=== PATIENT | female | born 1945 | race Caucasian/White ===

== ENCOUNTER 2017-06-16 14:12 | Outpatient (CLI) | payer MEDICARE, OTHER ==
[2017-06-16] MEDS ORDERED: POLY17PO10 PO (15:17)
[2017-06-16] MEDS ORDERED: NITR0.4T SL (15:17)
[2017-06-16] MEDS ORDERED: HYDR-565 PO (15:17)
[2017-06-16 15:52] LABS: BASOPHILS % (AUTO) 0.9 % (0-1); EOSINOPHILS # (AUTO) 0.1 X10'3 (0-0.9); EOSINOPHILS % (AUTO) 2.7 % (0-6); LYMPHOCYTES # (AUTO) 1.6 X10'3 (1.1-4.8); LYMPHOCYTES % (AUTO) 32.6 % (21-51); MEAN CORPUSCULAR HEMOGLOBIN 32.9 PG (27.0-31.0); MEAN CORPUSCULAR HGB CONC 33.7 % (33.0-36.5); MEAN CORPUSCULAR VOLUME 97.7 FL (78-98); MONOCYTES # (AUTO) 0.4 X10'3 (0-0.9); MONOCYTES % (AUTO) 8.6 % (2-12); NEUTROPHILS % (AUTO) 55.2 % (42-75); PRE OP HEMATOCRIT 31.6 % (35.0-45.0); PRE OP PLATELET COUNT 379 X10'3 (140-440); RED BLOOD COUNT 3.23 X10'6 (4.20-5.60); RED CELL DISTRIBUTION WIDTH 13.3 % (11.5-14.5)
[2017-06-16 15:54] LABS: PRE OP HEMOGLOBIN 10.6 g/dL (12.0-16.0)
[2017-06-16 16:02] LABS: ALBUMIN 3.4 G/DL (3.4-5.0); ALBUMIN/GLOBULIN RATIO 0.9 (1.1-1.5); ALKALINE PHOSPHATASE 104 IU/L (46-116); BLOOD UREA NITROGEN 10 MG/DL (7-18); BUN/CREATININE RATIO 12.7 (6.6-38.0); CALCIUM 8.4 MG/DL (8.5-10.1); CHLORIDE 107 MMOL/L (99-107); CREATININE 0.79 MG/DL (0.40-0.90); PRE OP ALT 29 U/L (30-65); PRE OP ANION GAP 8 (8-16); PRE OP AST 26 U/L (10-37); PRE OP BILIRUB, TOTAL 0.3 MG/DL (0.0-1.0); PRE OP GLUCOSE 83 MG/DL (70-104); PRE OP POTASSIUM 3.8 MMOL/L (3.4-5.1); PRE OP SODIUM 143 MMOL/L (135-145); TOTAL CARBON DIOXIDE 28.2 MMOL/L (24-32); eGFR 72 ML/MIN
== END 2017-06-16 23:59 | disposition home or self-care (01) ==
LOC: PRE-OP 14:12 → EDSTATUS 14:30 → PRE-OP 23:59 → EDSTATUS 06-21 15:45
PROVIDERS: ATTEND Orthopaedic Surgery
DX: Z01.818 Encounter for other preprocedural examination (principal); M17.12 Unilateral primary osteoarthritis, left knee; Z96.652 Presence of left artificial knee joint
CPT/HCPCS: 36415; 71046; 80053; 85025; 85610; 85730; 86885; 86900; 86901; 86920; 87070; 93005

== ENCOUNTER 2018-06-20 05:16 | Inpatient (IN) | payer MEDICARE, OTHER | END 2018-06-23 12:55 | disposition home or self-care (01) | LOC: PAS IN 05:16 → ORTHO 4S 12:15 | PROC: 0SRD0J9 Replacement of Left Knee Joint with Synthetic Substitute, Cemented, Open Approach (ICD-10-PCS; principal; 2018-06-20 07:21) | DX: M17.12 Unilateral primary osteoarthritis, left knee (principal); D62 Acute posthemorrhagic anemia ==

== ENCOUNTER 2023-09-07 05:49 | Day surgery (SDC) | payer MEDICARE, OTHER ==
[2023-09-01 14:11] LABS: BASOPHILS # (AUTO) 0.1 X10'3 (0-0.2); BASOPHILS % (AUTO) 1.3 % (0-1); EOSINOPHILS # (AUTO) 0.2 X10'3 (0-0.9); EOSINOPHILS % (AUTO) 3.7 % (0-6); LYMPHOCYTES # (AUTO) 1.4 X10'3 (1.1-4.8); LYMPHOCYTES % (AUTO) 28.3 % (21-51); MEAN CORPUSCULAR HGB CONC 32.5 g/dL (33.0-36.5); MEAN CORPUSCULAR VOLUME 95.4 FL (78-98); MEAN PLATELET VOLUME 8.6 FL (7.4-10.4); MONOCYTES # (AUTO) 0.5 X10'3 (0-0.9); MONOCYTES % (AUTO) 9.4 % (2-12); NEUTROPHILS # (AUTO) 2.9 X10'3 (1.8-7.7); NEUTROPHILS % (AUTO) 57.3 % (42-75); PRE OP HEMATOCRIT 40.4 % (35.0-45.0); PRE OP HEMOGLOBIN 13.1 g/dL (12.0-16.0); PRE OP PLATELET COUNT 276 X10'3 (140-440); PRE OP WHITE BLOOD COUNT 5.1 10'3 (4.8-10.8); RED BLOOD COUNT 4.23 X10'6 (4.20-5.60); RED CELL DISTRIBUTION WIDTH 14.6 % (11.5-14.5)
[2023-09-01 14:30] LABS: BILIRUBIN,URINE NEGATIVE (Neg); CLARITY,URINE CLEAR (Clear); COLOR,URINE YELLOW (Yellow); GLUCOSE, URINE NEGATIVE (Neg); KETONES,URINE NEGATIVE (Neg); LEUKOCYTE ESTERASE ,URINE NEGATIVE (Neg); NITRITES, URINE NEGATIVE (Neg); OCCULT BLOOD,URINE NEGATIVE (Neg); PH,URINE 6.5 (4.8-8.0); PROTEIN,URINE NEGATIVE (Neg); UA COLLECTION TYPE CLN CATCH MIDSTREAM; UROBILINOGEN,URINE 0.2 E.U/dL (0.2-1.0)
[2023-09-01 14:32] LABS: PRE OP PROTIME 10.3 SECONDS (9.0-12.0)
[2023-09-01 14:49] LABS: ALBUMIN 3.7 G/DL (3.4-5.0); ALKALINE PHOSPHATASE 120 IU/L (46-116); BLOOD UREA NITROGEN 12 MG/DL (7-18); BUN/CREATININE RATIO 16.2 (10.0-20.0); CHLORIDE 106 MMOL/L (99-107); CREATININE 0.74 MG/DL (0.40-0.90); PRE OP ALT 76 U/L (30-65); PRE OP ANION GAP 9 (8-16); PRE OP AST 55 U/L (10-37); PRE OP BILIRUB, TOTAL 0.5 MG/DL (0.0-1.0); PRE OP GLUCOSE 97 MG/DL (70-104); PRE OP SODIUM 140 MMOL/L (135-145); TOTAL CARBON DIOXIDE 24.7 MMOL/L (24-32); TOTAL PROTEIN 7.5 G/DL (6.4-8.2); eGFR 76 ML/MIN
[2023-09-07] VITALS (29 sets, daily range): BP systolic 87–146; BP diastolic 40–88; PULSE 60–99; RESP 13–22; TEMP 97.5–98.2; O2SAT 89–98
[~2023-09-07] VITALS: Ht 152.4 cm; Wt 61.4 kg
[2023-09-07] MEDS: cefazolin 2gm/D5W 100mL 100 ML IV ONE (05:30)
[~2023-09-07 05:49] MED LIST: ASPI1TAB9 PO; ESZO3TAB66 PO
[2023-09-07] MEDS ORDERED: acetaminophen 325mg tablet PO PRN (06:50)
[2023-09-07] MEDS ORDERED: diphenhydrAMINE 25mg capsule PO PRN (06:50)
[2023-09-07] MEDS ORDERED: bisacodyl 10mg suppository rectal RC PRN (06:50)
[2023-09-07] MEDS ORDERED: ondansetron/PF 4mg/2ml inj IV PRN ×2 (06:50→09:30)
[2023-09-07] MEDS ORDERED: magnesium hydroxide 30ml (MOM) UD suspension PO PRN (06:50)
[2023-09-07] MEDS ORDERED: naloxone 0.4 mg/ml inj IV PRN (06:50)
[2023-09-07] MEDS: ringers solution, lacted 1,000 ML IV SCH (06:51)
[2023-09-07] MEDS: famotidine 20mg tablet PO ONE (06:51)
[2023-09-07] MEDS ORDERED: cefazolin 2gm/D5W 100mL 100 ML IV SCH (08:00)
[2023-09-07] MEDS ORDERED: fentaNYL/PF 50MCG/1 ML 2ML syringe ONE (08:10)
[2023-09-07] MEDS ORDERED: sevoflurane 250ml liquid IH ONE (08:11)
[2023-09-07] MEDS ORDERED: midazolam 1 mg/ML 2ml injection ONE (08:11)
[2023-09-07] MEDS ORDERED: propofol inj 20 ML IV ONE (08:21)
[2023-09-07] MEDS ORDERED: rocuronium 10mg/ml inj IV ONE (08:21)
[2023-09-07] MEDS ORDERED: LIDOcaine 1%/PF 5ML 10 MG/ML VIAL ONE (08:21)
[2023-09-07] MEDS ORDERED: dexamethasone sod phosphate 4mg/ml inj. ONE (08:49)
[2023-09-07] MEDS ORDERED: vancomycin 1,000mg inj ONE (08:49)
[2023-09-07] MEDS: vancomycin 1,000mg inj IVT ONE (09:07)
[2023-09-07] MEDS ORDERED: ROPIVAcaine 0.5% (5mg/ml) 30ml vial ONE (09:20)
[2023-09-07] MEDS ORDERED: morphine 2 MG/ML inj. syringe IV PRN (09:30)
[2023-09-07] MEDS ORDERED: meperidine/PF 25mg/ml syringe IV PRN ×3 (09:30)
[2023-09-07] MEDS ORDERED: proCHLORperazine 10 MG/2 ml inj IV PRN (09:30)
[2023-09-07] MEDS ORDERED: morphine 4 MG/ML inj SYRINge IV PRN (09:30)
[2023-09-07] MEDS ORDERED: enalaprilat dihydrate 2.5mg/2ml vial IV PRN (09:30)
[2023-09-07] MEDS ORDERED: labetalol 20mg/4ml (5mg/ml) syringe IV PRN (09:30)
[2023-09-07] MEDS ORDERED: ringers solution, lacted 1,000 ML IV SCH (09:30)
[2023-09-07] MEDS ORDERED: ondansetron/PF 4mg/2ml inj ONE (10:21)
[2023-09-07] MEDS ORDERED: ASPI-128 PO (11:40)
[2023-09-07] MEDS: potassium cl 20mEq in 1/2 NS 1,000 ML IV SCH (14:35)
[2023-09-07] MEDS: oxyCODONE IR 5mg (immed. release) tablet PO PRN (16:37)
[2023-09-07] MEDS: cefazolin 2gm/D5W 100mL 100 ML IV SCH (16:55)
[2023-09-07] MEDS: zolpidem 5mg tablet PO SCH (20:54)
[2023-09-08] MEDS: methylene blue (5mg/ml) 50mg/10ml ampul IV ONE (00:58)
[2023-09-08] MEDS: tranexamic acid inj. 1,000 MG in normal saline IV soln 100ML IV ONE (00:58)
[2023-09-08] MEDS: gelatin sponge, absorbable (Gelfoam 100) sponge TP ONE (00:59)
[2023-09-08] MEDS: vancomycin 1,000mg inj ONE (00:59)
[2023-09-08] MEDS: Thrombin (Bovine) 5,000 unit vial TP ONE (01:00)
[2023-09-08] MEDS: cloNIDine hcl/PF 100mcg/ml inj ONE (01:00)
[2023-09-08 02:00] VITALS: BP 113/64; PULSE 96; RESP 15; TEMP 97.3; O2SAT 95
[2023-09-08 06:00] VITALS: BP 121/64; PULSE 96; RESP 16; TEMP 97.4; O2SAT 92
[2023-09-08 06:45] LABS: BASOPHILS % (AUTO) 0 % (0-1); EOSINOPHILS % (AUTO) 0 % (0-6); HEMATOCRIT 33.1 % (35.0-45.0); LYMPHOCYTES % (AUTO) 9.9 % (21-51); MEAN CORPUSCULAR HEMOGLOBIN 31.5 PG (27.0-31.0); MEAN CORPUSCULAR HGB CONC 33.2 g/dL (33.0-36.5); MEAN PLATELET VOLUME 8.4 FL (7.4-10.4); MONOCYTES # (AUTO) 0.7 X10'3 (0-0.9); MONOCYTES % (AUTO) 6.8 % (2-12); NEUTROPHILS # (AUTO) 8.5 X10'3 (1.8-7.7); NEUTROPHILS % (AUTO) 83.3 % (42-75); PLATELET COUNT 227 X10'3 (140-440); RED BLOOD COUNT 3.49 X10'6 (4.20-5.60); RED CELL DISTRIBUTION WIDTH 14.9 % (11.5-14.5); WHITE BLOOD COUNT 10.2 X10'3 (4.5-11.0)
[2023-09-08 06:46] LABS: ALANINE AMINOTRANSFERASE 54 U/L (12-78); ALBUMIN 2.8 G/DL (3.4-5.0); ALBUMIN/GLOBULIN RATIO 0.8 (1.1-1.5); ALKALINE PHOSPHATASE 114 IU/L (46-116); ANION GAP 9 (8-16); ASPARTATE AMINO TRANSFERASE 42 U/L (10-37); BILIRUBIN,TOTAL 0.4 MG/DL (0.1-1.0); BLOOD UREA NITROGEN 11 MG/DL (7-18); BUN/CREATININE RATIO 12.5 (10.0-20.0); CALCIUM 8.5 MG/DL (8.5-10.1); CHLORIDE 105 MMOL/L (99-107); CREATININE 0.88 MG/DL (0.40-0.90); GLUCOSE 155 MG/DL (70-104); POTASSIUM 4.2 MMOL/L (3.5-5.1); SODIUM 138 MMOL/L (135-145); TOTAL PROTEIN 6.3 G/DL (6.4-8.2); eCRCL 38 ML/MIN; eGFR 62 ML/MIN
[2023-09-08] MEDS: TYPE IN GENERIC & BRAND NAME OF PATIENT MED STRENGTH & FORM PO SCH (07:40)
[2023-09-08] MEDS: aspirin 325mg tablet PO SCH (07:46)
[2023-09-08] MEDS: oxyCODONE IR 5mg (immed. release) tablet PO PRN (07:46)
[2023-09-08 10:00] VITALS: BP 108/57; PULSE 95; RESP 16; TEMP 97.7; O2SAT 98
== END 2023-09-08 13:42 | disposition home or self-care (01) ==
LOC: PAS 05:49 → ORTHO 4S 07:04 → PAS 09-08 13:42
PROVIDERS: ATTEND Specialist
DX: M75.101 Unspecified rotator cuff tear or rupture of right shoulder, not specified as traumatic (principal); G89.18 Other acute postprocedural pain; E78.00 Pure hypercholesterolemia, unspecified; J43.9 Emphysema, unspecified; G62.9 Polyneuropathy, unspecified; Z87.891 Personal history of nicotine dependence; Z79.891 Long term (current) use of opiate analgesic; Z79.899 Other long term (current) drug therapy; Z90.49 Acquired absence of other specified parts of digestive tract; Z90.710 Acquired absence of both cervix and uterus; Z96.652 Presence of left artificial knee joint; Z88.8 Allergy status to other drugs, medicaments and biological substances
CPT/HCPCS: 23430; 23472; 36415; 64415; 71045; 73030; 80053; 81003; 82948; 85025; 85610; 85730; 86885; 86900; 86901; 87081; 97161; 97530; A4615; A4618; A6402; A6455; A7000; C1776; J0690; J0735; J1100; J2250; J2405; J2704; J2710; J2795; J3010; J3370; J3480; J3490; J7030; J7120; Q9968; Z7506; Z7508; Z7512; Z7610; 76000; A6449; G0378

== ENCOUNTER 2024-08-31 07:03 | Outpatient (CLI) | payer MEDICARE, OTHER ==
[~2024-08-31] VITALS: Ht 152.4 cm; Wt 59.0 kg
[~2024-08-31 07:03] MED LIST changes: +ASPI-128 PO; -ASPI1TAB9 PO
[2024-08-31 07:28] LABS: TOTAL HEMOGLOBIN 15.7 G/dl (12.0-16.0)
[2024-08-31] MEDS: albuterol 2.5 MG/3 ML nebule NEB ONE (08:16)
[2024-08-31 08:20] VITALS: PULSE 108; RESP 16; O2SAT 91
[2024-08-31 08:38] VITALS: PULSE 96; RESP 18
--- NOTE | 2024-09-01 16:55 | PROCEDURE NOTE - Respiratory ---
Procedure Note-Respiratory Providers to Copies To 1: HENRY ALEGRIA MD Procedure Name: This is a complete pulmonary function study dated August 31, 2024. Hemoglobin measurement was done as part of the study. Spirometry measurements: Both the forced vital capacity and the FEV1 are in the normal range. The FEV1 ratio however is depressed. All of the flow rate measurements show significant reduction. After inhaled bronchodilator was delivered, the FEV1 and the flow rates show significant improvement. Lung volume measurements: All of the lung volume determinations are within normal limits. Lung diffusion measurement: The DLCO measurement is clearly reduced. It is noted that the hemoglobin measurement is in the normal range. Airway resistance measurement: The airway resistance is normal. Conclusion: This study is abnormal. There is evidence for obstructive ventilatory defect in the moderate category. The patient shows some improvement with inhaled bronchodilator. These findings are consistent with the patient's diagnosis of smoking-related COPD. The patient shows reduction in the diffusion capacity which suggests a significant emphysema component to the COPD process. We have no previous studies for comparison. Continued use of bronchodilator medication is recommended for this patient. Close pulmonary follow-up is recommended. HENRY ALEGRIA MD Sep 01, 2024 16:55
== END 2024-08-31 23:59 | disposition home or self-care (01) ==
LOC: RT 07:03
PROVIDERS: ATTEND Internal Medicine Pulmonary Disease
DX: J44.9 Chronic obstructive pulmonary disease, unspecified (principal); J98.8 Other specified respiratory disorders
CPT/HCPCS: 85018; 94060; 94727; 94729; 94760